=== PATIENT | female | born 1985 | race Caucasian/White ===

== ENCOUNTER 2024-08-22 14:24 | Outpatient (RCR) | payer BC, SELFPAY ==
[2024-08-21 13:38] LABS: Hematocrit 35.1 % (37.0-47.0); Hemoglobin 11.4 g/dL (12.0-15.0)
[2024-08-21 13:59] LABS: Glucose 1 Hour PP 50gm Dose 123 mg/dL
[2024-08-21 14:16] LABS: Rapid Plasma Reagin Non-Reactive (NonReactive)
[2024-08-21 14:33] LABS: HIV 1/2 Ab P24 Ag Result Negative (Negative)
[2024-08-22] MEDS: RHO(D) IMMUNE GLOBULIN 300 MCG/2 ML SYRINGE IM (10:35)
== END 2024-08-22 14:30 | disposition home or self-care (01) ==
LOC: ANHLAB 14:24
PROVIDERS: Visit Provider Obstetrics & Gynecology
DX: Z11.4 Encounter for screening for human immunodeficiency virus [HIV] (principal); Z11.3 Encounter for screening for infections with a predominantly sexual mode of transmission; Z29.13 Encounter for prophylactic Rho(D) immune globulin; O36.0130 Maternal care for anti-D [Rh] antibodies, third trimester, not applicable or unspecified; Z3A.00 Weeks of gestation of pregnancy not specified
CPT/HCPCS: 36415; 82947; 85014; 85018; 85461; 86592; 86703; 86850; 86900; 86901; 90384; 96372; G0432; J2790

== ENCOUNTER 2024-11-16 06:00 | Inpatient (IN) | payer BC, SELFPAY ==
[2024-11-16] VITALS (18 sets, daily range): BP systolic 96–127; BP diastolic 56–101; PULSE 66–82; RESP 16; TEMP 36.5–36.9; O2SAT 97; BMI 30.7
--- OUTSIDE RECORDS SUMMARY | 2024-11-16 06:02 | XMS_ITS | Data Portability ---
Author Organization [facility] Address [address] [place] [address] Care Team Providers Care Electric Drill Operator Name Role Phone [facility] Primary Care Provider Assessment Encounter Date Assessment Date Assessment LastModified by Organization Details LastModified Time 10/23/2024 10/23/2024 Patient is ___weeks . Discussed plan. Not available 10/23/2024 10:44:36 10/29/2024 10/29/2024 Patient is ___weeks . Discussed plan. Not available 10/29/2024 11:13:36 11/09/2024 11/09/2024 Patient is ___weeks . Discussed plan. Not available 11/09/2024 11:36:08 Plan of Treatment Reminders Order Date Submit Date Provider Last Modified By Organization Details Last Modified Time Details Appointments INDUCTION 2024 06:00A Gaby SUE MD Not available Not available Not available Lab None recorded. Referral None recorded. Procedures None recorded. Surgeries None recorded. Imaging non-stres s test 2024 025 [facility], [address], [address], [place], [address], 11/13/2024 14:47:36 Medication Orders None recorded. Patient TargetsNo targets recorded. Patient InstructionsNo instructions recorded. Reason for Referral None Reported. Results Created Date Observation Date Name Description Value Unit Range Abnormal Flag Note LastModifiedBy Organization Detail LastModifiedTime 10/04/19 25 10/04/2024 US, obste tric, follo w-up No observ ation record ed. [email or web address] [facility] [address], [place], [address], 10/04/2024 12:37:02 10/04/19 25 10/04/2024 US, obste tric, follo w-up No observ ation record ed. [email or web address] [address], [place], [address], 10/04/2024 21:45:44 11/14/19 25 11/13/2024 non-s tress test No observ ation record ed. [email or web address] [facility] [address], [place], [address], 11/13/2024 14:39:48 11/14/19 25 non-s tress test No observ ation record ed. [email or web address] [facility] [address], [place], [address], 11/13/2024 14:49:13 Result Notes None recorded. Problems Name Problem SNOMED Code Status Onset Date Resolution Date Notes Provider Name and Address Organization Details Recorded Time [id number] Active 024 Arina Peraza [facility] 4 15:49:10 Advanced maternal age 867531087 Active Edilia Valerio [facility] 4 15:28:14 Problem Notes None recorded. Procedures Surgical History Date Name Laterality Status Provider Name and Address Organization Details Recorded Time 3 Date of Last Pap Smear completed Arina Peraza [facility] 04/13/2024 15:19:59 1 discectomy of spine completed Arina Peraza [facility] 04/13/2024 15:25:20 Imaging Results Imaging Date Name Status LastModified by Organiz ation Details LastModified Time 10/04/2024 US, obstetric, follow-up completed [email or web address] [facility] [address], [place], [address], 10/04/2024 12:37:02 10/04/2024 US, obstetric, follow-up completed [email or web address] [address], [place], [address], 10/04/2024 21:45:44 11/13/2024 non-stress test active [facility] [address], [place], [address], 11/13/2024 14:39:48 11/13/2024 non-stress test completed [facility] [address], [place], [address], 11/13/2024 14:49:13 Procedure Notes None recorded. Medical Equipment None Reported. Allergies No known drug allergies Medications Name Sig Start Date Stop Date Status Note LastModified by Organization Details LastModified Time ondansetron 8 mg disintegrat ing tablet Place 1 tablet twice a day by transling ual route. 07/27 completed Not Available Not Available Not Available active Not Available Not Avai lable Not Available Vitals Date Recorded Body height Body mass index (BMI) Body weight Systolic blood pressure Diastolic blood pressure Provider Name and Address Organization Details Last Updated DateTime 10/23/2024 167.64 cm 30.2 kg/m2 17833.77 g 112 mm[Hg] 62 mm[Hg] Arina Peraza [facility] 10:45:19 Date Recorded Body weight Systolic blood pressure Diastolic blood pressure Provider Name and Address Organization Details Last Updated DateTime 10/29/2024 94168.9579 3 g 117 mm[Hg] 75 mm[Hg] Arina Peraza [facility] 10/29/2024 11:14:16 Date Recorded Body height Body mass index (BMI) Body weight Systolic blood pressure Diastolic blood pressure Provider Name and Address Organization Details Last Updated DateTime 11/09/2024 167.64 cm 31.2 kg/m2 16116.33 g 129 mm[Hg] 76 mm[Hg] Arina Peraza [facility] 11:37:15 Date Recorded Body height Body mass index (BMI) Body weight Systolic blood pressure Diastolic blood pressure Provider Name and Address Organization Details Last Updated DateTime 11/13/2024 167.64 cm 30.7 kg/m2 03101.55 g 108 mm[Hg] 70 mm[Hg] EDITH Hinds [facility] 12:58:32 Date Recorded Body height Body mass index (BMI) Body weight Systolic blood pressure Diastolic blood pressure Provider Name and Address Organization Details Last Updated DateTime 11/13/2024 167.64 cm 30.7 kg/m2 66626.55 g 108 mm[Hg] 70 mm[Hg] Arina Peraza [facility] 14:35:47 Social History Question Answer Notes LastModified by Organizat ion Details LastModified Time Tobacco Smoking Status Never Smoker Arina Peraza nohelia, [facility] 04/13/2024 15:23:16 What Is Your Level Of Alcohol Consumption? None Information not available 04/13/2024 Are You Blind Or Do You Have Difficulty Seeing? No Information n ot available 04/13/2024 What Is Your Level Of Caffeine Consumption? None Information not available 04/13/2024 In The 14 Days Before Symptom Onset, Have You Had Close Contact With A Laboratory-confirm ed COVID-19 While That Case Was Ill? No Information n ot available 04/13/2024 In The 14 Days Before Symptom Onset, Have You Had Close Contact With A Person Who Is Under Investigation For COVID-19 While That Person Was Ill? No Information not available 04/13/2024 Have You Been To An Area Known To Be High Risk For COVID-19? No Information not available 04/13/2024 Are You Currently Employed? No Information not available 04/13/2024 Are You Deaf Or Do You Have Serious Difficulty Hearing? No Information not available 04/13/2024 What Type Of Diet Are You Following? VEGAN Information n ot available 04/13/2024 What Is The Highest Grade Or Level Of School You Have Completed Or The Highest Degree You Have Received? [id number] Information not available 04/13/2024 Are There Any Guns Present In Your Home? Yes Information not available 04/13/2024 Do You Use Protection During Sex? No Information not available 04/13/2024 Do You Use Your Seat Belt Or Car Seat Routinely? Yes Information not available 04/13/2024 Are You Sexually Active? Yes Information not available 04/13/2024 Do You Have Smoke And Carbon Monoxide Detectors In Your Home? Yes Information not available 04/13/2024 Do You Feel Stressed (tense, Restless, Nervous, Or Anxious, Or Unable To Sleep At Night)? [id number] Information not available 04/13/2024 Do You Use Any Illicit Or Recreational Drugs? No Information not available 04/13/2024 Do You Use Sunscreen Routinely? No Information not available 04/13/2024 Sex: Female Functional Status Question Answer Note LastModified by Organizat ion Details LastModified Time Do you have difficulty walking or climbing stairs? No Information not available 04/13/2024 Are you able to walk? YESWOREST Information not available 04/13/2024 Are you able to care for yourself? Yes Information not available 04/13/2024 Do you have difficulty dressing or bathing? No Information not available 04/13/2024 What is your exercise level? Heavy Information not available 04/13/2024 Mental Status None recorded. Family History Relationship Description Onset Age of this Age Resolved Age Notes LastModified by Organization Details LastModified Time Father Diabetes mellitus Not available 2023 15:22:52 Mother Malignant tumor of breast Not available 2023 15:23:00 Medical History Condition Response Allergies (Food, seasonal, environmental ) N Other N Drug/Latex Allergies/Reactions N Blood Transfusion N Breast Cancer N Dermatologic Disorders N Lung Disease N Defects or Inherited Disease N Breast Problem N Gestational Diabetes N Hematologic disorders N Anesthesia Complications N History of STI N Deep Vein Thrombosis N Polycystic ovary syndrome N Anxiety Disorder N Autoimmune disease N Arthritis N Polyps N Infertility N Acid Reflux (GERD) N History of abnormal pap N Cancer N Varicosities N Stroke N Neurologic/Epilepsy N Endometriosis N High Cholesterol N Fibromyalgia N Headaches N Kidney Disease N Heart Problems N Thyroid Problems N Kidney or Bladder Problems N GI Problems N Eating Disorder N Anemia N Art (IVF or FET) N Psychiatric Illness N Ovarian Cancer N Diabetes N Pulmonary (TB, Asthma) N Hepatitis/Liver Disease N No Past Medical History Y Eczema N Urinary Tract Infection N Abuse/Domestic Violence N Asthma N Trauma/Violence N Depression/ depression N Heart Disease N Pre-Eclampsia N Hypertension N Osteoporosis N Thrombophilias N Gynecological History Statement/Question Response Abnormal Pap N Flow Moderate Date of LMP 02/04/2024 On BCP's at Conception? N Was last menstrual period normal Y STIs/STDs N HPV Vaccine N Duration of Flow (days) 6 Current Control Method Are cycles usually normal Y Frequency of Cycle (Q days) 28 Sexually Active? Y Menses Monthly Y Age of first menstrual cycle 15 Date of Last Pap Smear 09/05/2022 Sexual Problems? N LMP Definite Obstetrics History GPAL:G 2 P 1 0 0 1 Type Value Full Term 1 Living 1 Total 2 Past Encounters Encounter ID Performer Location Encounter Start Date Encounter Closed Date Diagnosis/Indication Diagnosis SNOMED-CT Code Diagnosis ICD10 Code Diagnosis Note [id number] Fatmata Fleming [facility] [address] [address] 04/13/2024 14:21:28 04/13/2024 15:11:25 [id number] Valdo Sue MD [facility] [address] [address] 04/13/2024 14:31:30 04/13/2024 15:53:10 Amenorrhea 96741162 N91.2 this patient is a 38 year-old female who presents for amenorrhea . She is a positive test. Ultrasound revealed a 1st trimester gestation. Patient has no complaints . We talked about early care. Talked about genetic screening. We talked about her ultrasound results. We talked about the 12 week ultrasound that has genetic screening components . She was given recommenda tions on exercise, diet, over-the-c ounter medication s. We reviewed her obstetric history. We reviewed her medical history. We reviewed her social history. She will begin routine care at her next visit. [id number] Odalis Silva [facility] [address],[place] [address] 04/30/2024 14:45:36 04/30/2024 15:47:56 screening 181179337 Z36.82 Z3A.12 [id number] Valdo Sue MD [facility] [address],[place] [address] 04/30/2024 14:47:35 04/30/2024 16:36:05 Routine care 127680735 Z34.91 Nausea and vomiting 1693 1999 R11.2 [id number] Valdo Sue MD [facility] [address],[place] [address] 05/28/2024 09:23:31 05/28/2024 10:08:33 Routine care 634997040 Z34.91 [id number] SYMONE GOODEN MD [facility] [address] [address] 06/29/2024 11:24:59 06/29/2024 14:10:45 Advanced maternal age 387813493 O09.522 Gestation period, 20 weeks 49850788 Z3A.20 - continue PNV [id number] [facility] [address],[place] [address] 06/29/2024 11:27:19 07/02/2024 10:13:58 screening for malformation 343848441 Z36.3 Z3A.20 [id number] SYMONE GOODEN MD [facility] [address],[place] [address] 07/27/2024 09:18:03 07/27/2024 10:01:48 Routine care 894392643 Z34.82 [id number] [facility] [address] [address] 08/22/2024 09:27:42 08/22/2024 10:12:48 Advanced maternal age 832113083 O09.513 Z36.2 Z3A.28 [id number] SYMONE GOODEN MD [facility] [address],[place] [address] 08/22/2024 09:28:00 08/22/2024 10:54:39 Breech presentation 6271483 O32.1XX9 Advanced m aternal age 956062953 O09.522 RhD negative 363722101 Z 01.83 Gestation period, 28 weeks 93846650 Z3A.28 [id number] [facility] [address],[place] [address] 09/04/2024 11:52:25 09/04/2024 12:34:10 screening 179357606 Z36.2 Z3A.30 [id number] Valdo Sue MD [facility] [address],[place] [address] 09/04/2024 11:52:43 09/05/2024 02:47:37 Routine care 847963121 Z34.91 [id number] Valdo Sue MD [facility] [address],[place] [address] 09/17/2024 10:27:40 09/17/2024 10:53:21 Routine care 352567144 Z34.91 [id number] [facility] [address],[place] [address] 10/04/2024 10:18:46 10/04/2024 11:14:09 Uterine size for dates discrepancy 827215134 O26.843 Z3A.34 [id number] MD Indy Romano [address],[place] [address] 10/04/2024 10:19:05 10/04/2024 12:11:51 Routine care 779884865 Z34.91 [id number] MD Indy Romano [address],[place] [address] 10/16/2024 10:35:05 10/16/2024 12:18:54 Routine care 910464381 Z34.91 [id number] Valdo Sue MD [facility] [address],[place] [address] 10/23/2024 10:28:16 10/23/2024 11:15:59 Routine care 835799862 Z34.91 [id number] Valdo Sue MD [facility] [address],[place] [address] 10/29/2024 10:37:43 10/29/2024 12:05:26 Routine care 315279167 Z34.91 [id number] Valdo Sue MD [facility] [address],[place] [address] 11/09/2024 11:17:44 11/09/2024 12:30:22 Routine care 054292865 Z34.91 [id number] Arina Peraza [facility] [address],[place] [address] 11/13/2024 11:52:46 11/13/2024 14:47:36 Post-term 01231240 O48.0 [id number] Valdo Sue MD [facility] [address],[place] [address] 11/13/2024 11:53:47 11/13/2024 13:16:20 Health Concerns Section Related Observation LastModified by Organization Detai ls LastModified Time None Recorded Concern Status LastModified by Organization Details LastModified Time None Recorded Advance Directives Directive None Recorded Payers Encounter Date Sequence Insurance Name Policy Number Policy Bee Covered Member ID Bee Member ID Guarantor Name 10/23/2024 1 [place] [id number] Ruben Hartman [id number] 10/23/2024 2 [place] [facility] [id number] [facility] 10/29/2024 1 [id number] Ruben Hartman [id number] [facility] 10/29/2024 2 [place] [facility] [id number] [facility] 11/09/2024 1 [place] [id number] Ruben López [place] [id number] [facility] 11/09/2024 2 [place] [facility] [id number] [facility] 11/13/2024 1 [id number] Ruben López [place] [id number] [facility] 11/13/2024 2 [place] [facility] [id number] [facility] 11/13/2024 1 [place] [id number] Ruben López [place] [id number] [facility] 11/13/2024 2 [place] [facility] [id number] [facility] OBGyn Episode Ob Episode Information Episode Created Date Number of Fetuses Patient Bloodtype Patient rh Status Prepregnancy Weight lbs Domestic Partner Domestic Partner Phone Father Name Medical Art Therapist Status 04/13/20 24 1 CLOSED Fetus Data First Name Last Name Admitted to NICU Weight (g) Sex Living Outcome Pediatric Complications Fetus ID Race Codes Race Delivery Type 2749.67 [id number] F Full Term [id number] Vaginal Delivery Julito Calculation Initial Julito Date Initial Exam Date Initial Exam Provider Initial Ultrasound Date Last Menstrual Period Date Ultra Sound Weeks Gestation 0 Eighteen To Twenty Week Julito Update Ultra Sound Date Fundal Height At Umbil Quickening Date Ultra Sound Latest Weeks Gestation Final Julito Confirmed By Final Julito Confirmed Date Final Julito Date Ultra Sound Latest Days Gestation 0 0 Menstrual History Last Menstrual Date Menses Monthly On Bcp Conception Prior Menses Frequency Hcg Plus Date Menarche Onset Age Delivery Information Delivery Date Delivery Type Labor Anesthesia Weeks Gestation Incision Type Labor Labor Length Hrs Delivered By Post Complications Tubal Sterilization Discharge Date Comments 2 41 Discharge Information Feeding Method Contraceptive Method Maternal HG B and HCT Levels Ob Episode Information Episode Created Date Number of Fetuses Patient Bloodtype Patient rh Status Prepregnancy Weight lbs Domestic Partner Domestic Partner Phone Father Name Medical Art Therapist Status 04/30/20 24 1 A Negative 135 Abner OPEN Fetus Data First Name Last Name Admitted to NICU Weight (g) Sex Living Outcome Pediatric Complications Fetus ID Race Codes Race Delivery Type [id number] Problems Problem Notes + GBS Problem Name Start Date End Date Resolution Snomed Code Not e Advanced maternal age [id number] Julito Calculation Initial Julito Date Initial Exam Date Initial Exam Provider Initial Ultrasound Date Last Menstrual Period Date Ultra Sound Weeks Gestation 04/30/2024 04/30/2024 02/04/2024 12 Eighteen To Twenty Week Julito Update Ultra Sound Date Fundal Height At Umbil Quickening Date Ultra Sound Latest Weeks Gestation Final Julito Confirmed By Final Julito Confirmed Date Final Julito Date Ultra Sound Latest Days Gestation 0 [email or web address] 04/30/2024 11/11/19 25 0 Pre- Flowsheet Flowsheet Date 04/30/2024 Tavares Score Blood Edema Fundus Height Fundus Units Glucose Ketones Leukocytes Nitrite Labor Signs Protein Cervic Dilation Cervic Effacement Cervic Station 12 cm Type Weight in lbs Pre/Post Dialysis Refused Weight 137.398091390459 BP Diastolic BP Location Tested BP Systolic BP Type 73 L arm 113 sitting Fetus Heart Rate Present A 145 Fetus Movement A No Comments this patient is a 39-year-ol d nultiparous female at 12 weeks' gestation who presents for initial care. She has a history of term vaginal births. Her medical, surgical, obstetric history is unremarkable. She is vaccinated. She was given precautions recommendations for . We talked about vaccines in . Talked about care in detail. She is having genetic testing. She had a normal 12 week ultrasound. To begin routine care. Flowsheet Date 05/28/2024 Tavares Score Blood Edema Fundus Height Fundus Units Glucose Ketones Leukocytes Nitrite Labor Signs Protein Cervic Dilation Cervic Effacement Cervic Station Type Weight in lbs Pre/Post Dialysis Refused 144.522305232254 BP Diastolic BP Location Tested BP Systolic BP Type 71 L arm 121 sitting Fetus Heart Rate Present A 155 Fetus Movement A No Comments no complaints, no problems, routine care, no contractions, no vaginal bleeding, no loss of fluid, no cramping Flowsheet Date 06/29/2024 Tavares Score Blood Edema Fundus Height Fundus Units Glucose Ketones Leukocytes Nitrite Labor Signs Protein Cervic Dilation Cervic Effacement Cervic Station Type Weight in lbs Pre/Post Dialysis Refused BP Diastolic BP Location Tested BP Systolic BP Type Fetus Heart Rate Present Fetus Movement Comments Flowsheet Date 06/29/2024 Tavares Score Blood Edema Fundus Height Fundus Units Glucose Ketones Leukocytes Nitrite Labor Signs Protein Cervic Dilation Cervic Effacement Cervic Station neg none none trace Type Weight in lbs Pre/Post Dialysis Refused 148.418891192782 BP Diastolic BP Location Tested BP Systolic BP Type 70 L arm 110 sitting Fetus Heart Rate Present A Present Fetus Movement A Yes Comments Good movement. No cram ping or bleeding. Anatomy incomplete today, needs ductal arch and plantar right foot. EFW 12%, will monitor in 4 weeks at repeat anatomy US. Discussed parameters for normal EFW. Overall doing well, RTC 4 weeks. Flowsheet Date 07/27/2024 Tavares Score Blood Edema Fundus Height Fundus Units Glucose Ketones Leukocytes Nitrite Labor Signs Protein Cervic Dilation Cervic Effacement Cervic Station neg none none trace Type Weight in lbs Pre/Post Dialysis Refused Weight 159.576428940297 BP Diastolic BP Location Tested BP Systolic BP Type 77 L arm 136 sitting Fetus Heart Rate Present A 150 Fetus Movement A Yes Comments Doing well, no issues. Good movement. No cramping or bleeding. Son had pinworms, patient does not have symptoms. Discussed meds should be safe if needed in . Discussed repeat anatomy US and GCT/labs at [facility] for next visit. RTC 4 weeks. Flowsheet Date 08/22/2024 Tavares Score Blood Edema Fundus Height Fundus Units Glucose Ketones Leukocytes Nitrite Labor Signs Protein Cervic Dilation Cervic Effacement Cervic Station Type Weight in lbs Pre/Post Dialysis Refused BP Diastolic BP Location Tested BP Systolic BP Type Fetus Heart Rate Present Fetus Movement Comments Flowsheet Date 08/22/2024 Tavares Score Blood Edema Fundus Height Fundus Units Glucose Ketones Leukocytes Nitrite Labor Signs Protein Cervic Dilation Cervic Effacement Cervic Station neg none Type Weight in lbs Pre/Post Dialysis Refused 166.633511459120 BP Diastolic BP Location Tested BP Systolic BP Type 66 L arm 114 sitting Fetus Heart Rate Present A 134 Fetus Movement A Yes Comments Doing well, good movem ent. No cramping or bleeding. Completed GCT and labs at [facility] yesterday, all within normal limits. Will call to schedule Rhogam injection. EFW 21%, nany breech. plantar feet view normal, DA not visualized due to position. Will repeat in 4 weeks. Discussed tdap vaccine. RTC 2 weeks. Flowsheet Date 09/04/2024 Tavares Score Blood Edema Fundus Height Fundus Units Glucose Ketones Leukocytes Nitrite Labor Signs Protein Cervic Dilation Cervic Effacement Cervic Station Type Weight in lbs Pre/Post Dialysis Refused BP Diastolic BP Location Tested BP Systolic BP Type Fetus Heart Rate Present Fetus Movement Comments Flowsheet Date 09/04/2024 Tavares Score Blood Edema Fundus Height Fundus Units Glucose Ketones Leukocytes Nitrite Labor Signs Protein Cervic Dilation Cervic Effacement Cervic Station Type Weight in lbs Pre/Post Dialysis Refused 172.382581033278 BP Diastolic BP Location Tested BP Systolic BP Type 69 L arm 109 sitting Fetus Heart Rate Present A 136 Fetus Movement A Yes Comments no complaints, no problems, routine care, no contractions, no vaginal bleeding, no loss of fluid, no cramping Flowsheet Date 09/17/2024 Taavres Score Blood Edema Fundus Height Fundus Units Glucose Ketones Leukocytes Nitrite Labor Signs Protein Cervic Dilation Cervic Effacement Cervic Station 29 cm Type Weight in lbs Pre/Post Dialysis Refused Weight 176.382313802985 BP Diastolic BP Location Tested BP Systolic BP Type 72 L arm 122 sitting Fetus Heart Rate Present Fetus Movement A Yes Comments no complaints, no problems, routine care, no contractions, no vaginal bleeding, no loss of fluid, no crampingsize < dates - Ultrasound Flowsheet Date 10/04/2024 Tavares Score Blood Edema Fundus Height Fundus Units Glucose Ketones Leukocytes Nitrite Labor Signs Protein Cervic Dilation Cervic Effacement Cervic Station Type Weight in lbs Pre/Post Dialysis Refused BP Diastolic BP Location Tested BP Systolic BP Type Fetus Heart Rate Present Fetus Movement Comments Flowsheet Date 10/04/2024 Tavares Score Blood Edema Fundus Height Fundus Units Glucose Ketones Leukocytes Nitrite Labor Signs Protein Cervic Dilation Cervic Effacement Cervic Station Type Weight in lbs Pre/Post Dialysis Refused 183.298858501708 BP Diastolic BP Location Tested BP Systolic BP Type 70 L arm 111 sitting Fetus Heart Rate Present A 144 Fetus Movement A Yes Comments no complaints, no problems, routine care, no contractions, no vaginal bleeding, no loss of fluid, no cramping Flowsheet Date 10/16/2024 Tavares Score Blood Edema Fundus Height Fundus Units Glucose Ketones Leukocytes Nitrite Labor Signs Protein Cervic Dilation Cervic Effacement Cervic Station 1cm 20% -3 Type Weight in lbs Pre/Post Dialysis Refused Weight 184.954842733148 BP Diastolic BP Location Tested BP Systolic BP Type 65 L arm 117 sitting Fetus Heart Rate Present A 145 Present Fetus Movement A Yes Comments no complaints, no problems, routine care, no contractions, no vaginal bleeding, no loss of fluid, no cramping Flowsheet Date 10/23/2024 Tavares Score Blood Edema Fundus Height Fundus Units Glucose Ketones Leukocytes Nitrite Labor Signs Protein Cervic Dilation Cervic Effacement Cervic Station 37 cm Type Weight in lbs Pre/Post Dialysis Refused Weight 187.152067329374 BP Diastolic BP Location Tested BP Systolic BP Type 62 L arm 112 sitting Fetus Heart Rate Present A 146 Present Fetus Movement A Yes Comments no complaints, no problems, routine care, no contractions, no vaginal bleeding, no loss of fluid, no cramping Flowsheet Date 10/29/2024 Tavares Score Blood Edema Fundus Height Fundus Units Glucose Ketones Leukocytes Nitrite Labor Signs Protein Cervic Dilation Cervic Effacement Cervic Station Type Weight in lbs Pre/Post Dialysis Refused 189.687178841569 BP Diastolic BP Location Tested BP Systolic BP Type 75 L arm 117 sitting Fetus Heart Rate Present A 145 Fetus Movement A Yes Comments no complaints, no problems, routine care, no contractions, no vaginal bleeding, no loss of fluid, no cramping Flowsheet Date 11/09/2024 Tavares Score Blood Edema Fundus Height Fundus Units Glucose Ketones Leukocytes Nitrite Labor Signs Protein Cervic Dilation Cervic Effacement Cervic Station Type Weight in lbs Pre/Post Dialysis Refused Weight 193.468862593707 BP Diastolic BP Location Tested BP Systolic BP Type 76 L arm 129 sitting Fetus Heart Rate Present A 166 Present Fetus Movement A Yes Comments no complaints, no problems, routine care, no contractions, no vaginal bleeding, no loss of fluid, no cramping, to induce at 40 and 5 Flowsheet Date 11/13/2024 Tavares Score Blood Edema Fundus Height Fundus Units Glucose Ketones Leukocytes Nitrite Labor Signs Protein Cervic Dilation Cervic Effacement Cervic Station Type Weight in lbs Pre/Post Dialysis Refused Weight 190.559794347535 BP Diastolic BP Location Tested BP Systolic BP Type 70 L arm 108 sitting Fetus Heart Rate Present Fetus Movement Comments Flowsheet Date 11/13/2024 Tavares Score Blood Edema Fundus Height Fundus Units Glucose Ketones Leukocytes Nitrite Labor Signs Protein Cervic Dilation Cervic Effacement Cervic Station none Type Weight in lbs Pre/Post Dialysis Refused Weight 190.630800719407 BP Diastolic BP Location Tested BP Systolic BP Type 70 L arm 108 sitting Fetus Heart Rate Present Fetus Movement A Yes Comments no complaints, no problems, routine care, no contractions, no vaginal bleeding, no loss of fluid, no cramping Menstrual History Last Menstrual Date Menses Monthly On Bcp Conception Prior Menses Frequency Hcg Plus Date Menarche Onset Age 0602/04/2024 true Delivery Information Delivery Date Delivery Type Labor Anesthesia Weeks Gestation Incision Type Labor Labor Length Hrs Delivered By Post Complications Tubal Sterilization Discharge Date Comments Discharge Information Feeding Method Contraceptive Method Maternal HG B and HCT Levels
--- NOTE | 2024-11-16 06:24 | WPDANESEPP ---
Anes - Eval Pre Procedure Procedure: Labor epidural Date/Time: 11/16/24 06:24 Surgeon: Burke Preop Diagnosis: Abdominal pain with contractions Pre Op Diagnosis: IOL Patient Data Age: 39 Gender: F Height: Weight: Allergies Allergy/AdvReac Type Severity Reaction Status Date / Time nickel Allergy Rash Verified 10/13/24 12:34 Home Medications ?Medication ?Instructions ?Recorded ?Confirmed ?Type vits no.130-ferrous fum 1 tablet PO DAILY 10/13/24 11/16/24 History 27 mg iron-folic acid 800 mcg tablet ( Vitamin) : gestational age HCG: positive Patient hx anesthesia problems: none Family hx anesthesia problems: none Results Review: All pre-operative results and documents have been reviewed as part of the pre-operative evaluation. [facility] Past Medical History Medical History Overweight (BMI 25.0-29.9) and not yet delivered Seasonal allergies History of herniated intervertebral disc History of vaginal delivery Surgical History Surgical History History of lumbar discectomy Family History Family History Father Diabetes mellitus Mother Breast cancer Social History Social History Smoking status: Never smoker Alcohol intake: never Substance use: never Lack of Transportation: No Lack of Food: Never True Current Housing: I Have Housing Concerned About Future Housing: No Difficulty Paying Gas/Electric Bills: No Difficulty Paying for Meds: No Currently Unemployed: YES Education: Master's Degree or Higher Difficulty w/ Childcare or Family Care: No Living arrangements: with family Additional occupation/education comments: Stay at home mom Gender identity (if verbalized by the patient): Female Sexual Orientation (if Verbalized by the Patient): Straight or Heterosexual Spiritual care concerns: No Exam Day of Procedure 11/16/24 06:24 Patient weight: overweight
[2024-11-16 06:30] LABS: Basophils Percent Auto 0.4 % (0.2-1.2); Eosinophils Percent Auto 0.4 % (0-4.4); Hematocrit 37.1 % (37.0-47.0); Hemoglobin 12.1 g/dL (12.0-15.0); Immature Granulocyte Absolute 0.09 K/mm3 (0.00-0.031); Immature Granulocyte Percent A 0.9 % (0-0.5); Lymphocytes Absolute Auto 1.79 K/mm3 (0.9-3.2); Lymphocytes Percent Auto 17.4 % (18.3-44.2); Mean Corpuscular HGB Conc 32.6 g/dl (32-36); Mean Corpuscular Hemoglobin 29.2 pg (26-34); Mean Corpuscular Volume 89.4 fl (80-100); Mean Platelet Volume 10.1 fl (7.4-10.4); Monocytes Absolute Auto 0.8 K/mm3 (0.1-0.6); Monocytes Percent Auto 7.7 % (2.6-8.5); Neutrophils Absolute Auto 7.5 K/mm3 (1.3-6.7); Neutrophils Percent Auto 73.2 % (45.5-73.1); Platelet Count Result 217 k/mm3 (150-375); Red Blood Count 4.15 M/mm3 (4.2-5.4); Red Cell Distribution Width 13.5 % (11.5-14.5); White Blood Count 10.3 K/mm3 (4.5-10.0)
[2024-11-16] MEDS: LACTATED RINGERS 1,000 ML 125 ML IV CONT (06:39)
[2024-11-16] MEDS: AMPICILLIN 2 GM/NS 100 ML 2 GM/100 ML BAG IVPB (06:41)
--- NOTE | 2024-11-16 06:49 | LDADM ---
This patient, Pamela Hartman, was admitted to Labor/Delivery/Recovery 106 on 11/16/24 at 06:00. Plans for labor, pain management and were discussed with patient. Patient/family oriented to hospital policies and general routines including ID bracelet, bed and alarms, visiting hours, pain management, procedures, bathroom and other care routines, personal items, smoking policy, room service/diet and guest tray routines, infant security routines, and visiting hours. Patient/Family are encouraged to report perceived risks to care and to ask questions if they do not understand what they are told or what they should do. See OBIX for further documentation.
[2024-11-16] MEDS: OXYTOCIN 30 UNITS/NS 500 ML 30 UNITS/500 ML BAG IV CONT (07:05)
[2024-11-16 07:21] LABS: HIV 1/2 Ab P24 Ag Result Negative (Negative)
[2024-11-16 07:22] LABS: Syphilis IgG/IgM Antibody Negative (Negative)
--- NOTE | 2024-11-16 08:39 | WPDHPUPDATE1 ---
History and Physical Update Update Date/Time: 11/16/24 08:39 this patient is a 39 year old multiparous female at 40 weeks and 5 days gestation who presents for induction of labor for postdates. Active management of labor has been initiated with Pitocin. She is GBS positive and receiving antibiotics. Reassuring status. History and Physical has been reviewed, including an updated exam of the patient. There are NO changes in the patient's condition. Risks, benefits, and alternatives have been discussed and questions answered. Patient agrees to proceed with procedure.
[2024-11-16] MEDS: AMPICILLIN 1 GM/NS 50 ML 1 GM/50 ML BAG IVPB (10:49)
--- NOTE | 2024-11-16 12:33 | PM.OBPRVD ---
OB - Vaginal Delivery Note Procedure Delivery date: 11/16/24 Induction method: Per Pitocin Protocol Delivery monitor: External FHT and External Uterine Route of delivery: Episiotomy description: None Laceration Description: Periurethral Delivery repair: vicryl Quantitative Blood Loss (ml): 250 Anesthesia type: None Disposition: Floor Complications: No immediate complications
[2024-11-16] MEDS: OXYTOCIN 30 UNITS/NS 500 ML 30 UNITS/500 ML BAG 125 UNITS IV CONT (12:56)
--- NOTE | 2024-11-16 14:50 | OBPPTRN ---
Patient transferred to post room #285 via ambulation. Support person present. Oriented to unit, room, information board, rooming in, admission packet and security measures. Patient verbalizes understanding.
--- NOTE | 2024-11-16 16:50 | PC.NURSE ---
Met with mother to assess needs. Mom has fed several times independently already and has baby to breast again. Mom states that she knows baby has a shallow latch at this time, so she broke suction and latched again. It took several tries but baby opens very wide and is eager to nurse. Mom isn't having pain, breastfed her other child, and feels comfortable with how things are going so far. Encouraged her to call for assistance as needed. Reported to RN.
[2024-11-17 04:01] VITALS: BP 103/59; PULSE 73; RESP 18; TEMP 36.6; O2SAT 97
[2024-11-17 05:08] LABS: Hematocrit 39.1 % (37.0-47.0); Hemoglobin 12.1 g/dL (12.0-15.0)
[2024-11-17 08:30] VITALS: BP 113/70; PULSE 82; RESP 16; TEMP 36.4; O2SAT 98
[2024-11-17] MEDS: RHO(D) IMMUNE GLOBULIN 300 MCG/2 ML SYRINGE IM (10:35)
--- NOTE | 2024-11-17 14:05 | P.PNOB_ITS ---
OB - PN: Subj Subjective Date/time seen: 11/17/24 14:05 Patient comments: no complaints, pain well controlled, incisional pain, tolerating diet and flatus present OB - PN: Obj Data Labs 11/17/24 04:13 Labs: Laboratory Results - last 24 hr 11/17/24 04:13 Hgb 12.1 Hct 39.1 Blood Type A Negative Antibody Screen Negative Screen Negative Baby's Blood Type A pos Baby's ANJELICA Negative Doses of RhIg Required 1 OB - PN A/P Plan day: 1 Plan: routine care Comments: No problems, routine care Time Spent With Patient Time: Total time spent is greater than 50% in coordination of care (as documented) at patient's floor/unit and/or counseling patient: Exam 2 Const: General: comfortable, no acute distress and alert Resp: Effort & Inspection: normal respiratory effort Auscultation: no crackles, no rales and no rhonchi Cardio: Rate: regular rate Heart sounds: no click, no murmurs and no rubs GI: Inspection: non-distended GI Palp: No Tenderness to palpation present (GI) Auscultation: normal bowel sounds Other: Incision - CDI Extrem: General: normal to inspection, no pedal edema and no calf tenderness
--- NOTE | 2024-11-17 14:05 | PM.OBDSVD ---
DS: Admitting Diagnosis Discharge Date 11/17/2024 Admitting Diagnosis Term DS: Discharge Diagnosis Discharge Diagnosis (1) Term delivered: Code(s): O80 - Encounter for full-term uncomplicated delivery Status: Acute OB - DS: Summary OB Procedures : None OB Procedures Intrapartum: Spontaneous Vag Delivery OB Procedures: : None Peripartum Data Laceration Description: Periurethral Episiotomy description: None Time Spent with Patient Time attestation: Total time spent providing and/or coordinating discharge services: DS: Data Data Completed and Pending Labs on day of discharge: Labs from last 24 hours 11/17/24 04:13 Hgb 12.1 Hct 39.1 Blood Type A Negative Antibody Screen Negative Screen Negative Baby's Blood Type A pos Baby's ANJELICA Negative Doses of RhIg Required 1 Discharge Plan Discharge Discharging Clinician: Valdo Turk Patient Disposition: Home, Self-Care Activity: pelvic rest Diet: regular Patient Instructions: Antibiotic Form Patient Language: [place] Zealander Stand Alone Forms: General Discharge Information Follow-up/Referrals: Valdo Turk MD [Physician] - Discharge Medications: Continued Vitamin 27 mg iron- 800 mcg tablet 1 tablet PO DAILY Date of admission: 11/16/24 06:00 Primary Care Provider: UNKNOWN,DOCTOR Admitting Provider: Valdo Turk Attending physician on admission: Valdo Turk Condition: Stable
[2024-11-19 09:37] VITALS: BP 116/66; PULSE 77; RESP 18; TEMP 36.4; O2SAT 99
== END 2024-11-17 14:39 | disposition home or self-care (01) | DRG 807 ==
LOC: ANHLDR 06:01 → ANHOB2 15:19
PROVIDERS: Admitting Provider Obstetrics & Gynecology; Visit Provider Obstetrics & Gynecology
DX: O48.0 Post-term pregnancy (principal); Z37.0 Single live birth; Z3A.40 40 weeks gestation of pregnancy; O71.82 Other specified trauma to perineum and vulva
CPT/HCPCS: 36415; 85014; 85018; 85025; 85461; 86593; 86703; 86850; 86900; 86901; 90384; G0432; J0290; J2590; J2790; J7120

== ENCOUNTER 2025-01-12 07:39 | Emergency (ER) | payer BC, MEDICAID, SELFPAY ==
[2025-01-12 07:40] VITALS: BP 108/75; PULSE 77; RESP 16; TEMP 36.4; O2SAT 98
--- OUTSIDE RECORDS SUMMARY | 2025-01-12 07:41 | XMS_ITS | Data Portability ---
Author Organization [facility] [place] Address [address] [place] [address] [place] [address] Care Team Providers Care Wet Process Miller Head Name Role Phone [facility] Primary Care Provider Assessment No assessment recorded. Plan of Treatment Reminders Order Date Submit Date Provider Last Modified By Organization Details Last Modified Time Details Appointments IUD INSERTION 2024 10:45A M CRISTIANE Estes Not available Not available Not available Lab beta-HCG, quantitat terrence, serum or plasma 2024 025 [facility] ([facility]), [address], [place], [address], 01/07/2025 13:49:30 Referral None recorded. Procedures None recorded. Surgeries None recorded. Imaging non-stres s test 2024 025 [email or web address] [facility], [address], [place], [address], 11/13/2024 14:47:36 Medication Orders None recorded. Patient TargetsNo targets recorded. Patient InstructionsNo instructions recorded. Reason for Referral None Reported. Results Created Date Observation Date Name Description Value Unit Range Abnormal Flag Note LastModifiedBy Organization Detail LastModifiedTime 11/14/19 25 11/13/2024 non-s tress test No observ ation record ed. [facility] [address], [place], [address], 11/13/2024 14:39:48 11/14/19 25 non-s tress test No observ ation record ed. [address], [place], [address], 11/13/2024 14:49:13 Result Notes None recorded. Problems Name Problem SNOMED Code Status Onset Date Resolution Date Notes Provider Name and Address Organization Details Recorded Time 83193974 Completed 202311/27/2024 Lynda Louise null, [facility] 5 19:51:47 Advanced maternal age 966865957 Completed Edilia Valerio [facility], [facility] 4 15:28:14 Problem Notes None recorded. Procedures Surgical History Date Name Laterality Status Provider Name and Address Organization Details Recorded Time 5 IUD Insertion completed Luanne Bales [facility] 01/07/2025 12:30:41 3 Date of Last Pap Smear [facility] 04/13/2024 15:19:59 1 discectomy of spine [facility] 04/13/2024 15:25:20 Imaging Results Imaging Date Name Status LastModified by Organiz ation Details LastModified Time 11/13/2024 non-stress test active [address], [place], [address], 11/13/2024 14:39:48 11/13/2024 [facility] [place] [address] [address], [place], [address], 11/13/2024 14:49:13 Procedure Notes None recorded. Medical [...] Updated DateTime 11/13/2024 167.64 cm 30.7 kg/m2 96997.55 g 108 mm[Hg] 70 mm[Hg] EDITH Hinds [facility] 12:58:32 Date Recorded Body height Body mass index (BMI) Body weight Systolic blood pressure Diastolic blood pressure Provider Name and Address Organization Details Last Updated DateTime 11/13/2024 167.64 cm 30.7 kg/m2 66251.55 g 108 mm[Hg] 70 mm[Hg] Arina Stu [facility] 14:35:47 Date Recorded Body height Body mass index (BMI) Body weight Systolic blood pressure Diastolic blood pressure Provider Name and Address Organization Details Last Updated DateTime 12/28/2024 167.64 cm 22.9 kg/m2 51765.12 g 114 mm[Hg] 77 mm[Hg] Arina Stu [facility] 09:34:37 Date Recorded Body height Body mass index (BMI) Body weight Systolic blood pressure Diastolic blood pressure Provider Name and Address Organization Details Last Updated DateTime 01/07/2025 167.64 cm 24.6 kg/m2 47273.48 g 112 mm[Hg] 70 mm[Hg] Luannemarlena Lynchney [facility] 12:46:33 Social History Question Answer Notes LastModified by Organizat ion Details LastModified Time Tobacco Smoking Status Never Smoker Arina Peraza [facility] 04/13/2024 15:23:16 What Is Your Level [...] Or The Highest Degree You Have Received? [id number] Information not available 04/13/2024 Are There Any [...] Anxious, Or Unable To Sleep At Night)? [id number] Information not available 04/13/2024 Do You Use [...] (Food, seasonal, environmental ) N Other N Breast Cancer N Drug/Latex Allergies/Reactions N Blood Transfusion N Dermatologic Disorders N Lung Disease N Defects or Inherited Disease N Breast Problem N Gestational Diabetes N Hematologic disorders N Anesthesia Complications N History of STI N Deep Vein Thrombosis N Polycystic ovary syndrome N Anxiety Disorder N Autoimmune disease N Arthritis N Infertility N Polyps N Acid Reflux (GERD) N History of abnormal pap N Cancer N Stroke N Varicosities N Neurologic/Epilepsy N Endometriosis N High Cholesterol N Headaches N Fibromyalgia N Kidney Disease N Heart Problems N Kidney or Bladder Problems N Thyroid Problems N GI Problems N Eating Disorder [...] of Flow (days) 6 Current Control Method Breastfeedi ng/STERN Are cycles usually normal Y Frequency of Cycle (Q days) 28 Sexually Active? Y Menses Monthly Y Age of first menstrual cycle 15 Date of Last Pap Smear 09/05/2022 Sexual Problems? N Desired Control Method BCPs LMP Definite Obstetrics History GPAL:G 2 P 2 0 0 2 Type Value Full Term 2 Living 2 Total 2 Past Encounters Encounter ID Performer Location Encounter Start Date Encounter Closed Date Diagnosis/Indication Diagnosis SNOMED-CT Code Diagnosis ICD10 Code Diagnosis Note [id number] Valdo Turk MD [facility] [address] [address] 04/13/2024 14:21:28 04/13/2024 15:11:25 [id number] Valdo Turk MD [place] [address],[place] [address] 04/13/2024 14:31:30 04/13/2024 15:53:10 Amenorrhea 73895619 N91.2 this patient is a 38 year-old [...] begin routine care at her next visit. [id number] Valdo Turk MD [place] [address],[place] [address] 04/30/2024 14:45:36 04/30/2024 15:47:56 screening 456260042 Z36.82 Z3A.12 [id number] Valdo Turk MD [place] [address],[place] [address] 04/30/2024 14:47:35 04/30/2024 16:36:05 Routine care 294157865 Z34.91 Nausea and vomiting 1693 2000 R11.2 [id number] Valdo Turk MD [place] [address],[place] [address] 05/28/2024 09:23:31 05/28/2024 10:08:33 Routine care 078147054 Z34.91 [id number] SYMONE GOODEN MD [place] [address],[place] [address] 06/29/2024 11:24:59 06/29/2024 14:10:45 Advanced maternal age 674028345 O09.522 Gestation period, 20 weeks 84257469 Z3A.20 - continue PNV [id number] Valdo Turk MD [place] [address],[place] [address] 06/29/2024 11:27:19 07/02/2024 10:13:58 screening for malformation 432329079 Z36.3 Z3A.20 [id number] SYMONE GOODEN MD [place] [address],[place] [address] 07/27/2024 09:18:03 07/27/2024 10:01:48 Routine care 850665605 Z34.82 [id number] MD Indy Romano [address],[place] [address] 08/22/2024 09:27:42 08/22/2024 10:12:48 Advanced maternal age 371332521 O09.513 Z36.2 Z3A.28 [id number] SYMONE GOODEN MD [place] [address],[place] [address] 08/22/2024 09:28:00 08/22/2024 10:54:39 Breech presentation 1041142 O32.1XX9 Advanced m aternal age 669087653 O09.522 RhD negative 155695246 Z 01.83 Gestation period, 28 weeks 23092395 Z3A.28 [id number] Valdo Turk MD [place] [address],[place] [address] 09/04/2024 11:52:25 09/04/2024 12:34:10 screening 708004691 Z36.2 Z3A.30 [id number] MD Indy Romano [address],[place] [address] 09/04/2024 11:52:43 09/05/2024 02:47:37 Routine care 930753989 Z34.91 [id number] MD Indy Romano [address],[place] [address] 09/17/2024 10:27:40 09/17/2024 10:53:21 Routine care 927707949 Z34.91 [id number] MD Indy Romano [address],[place] [address] 10/04/2024 10:18:46 10/04/2024 11:14:09 Uterine size for dates discrepancy 822785607 O26.843 Z3A.34 [id number] MD Indy Romano [address],[place] [address] 10/04/2024 10:19:05 10/04/2024 12:11:51 Routine care 876651028 Z34.91 [id number] MD Indy Romano [address],[place] [address] 10/16/2024 10:35:05 10/16/2024 12:18:54 Routine care 414954612 Z34.91 [id number] MD Indy Romano [address],[place] [address] 10/23/2024 10:28:16 10/23/2024 11:15:59 Routine care 793719714 Z34.91 [id number] MD Indy Romano [address],[place] [address] 10/29/2024 10:37:43 10/29/2024 12:05:26 Routine care 406268932 Z34.91 [id number] MD Indy Romano [address],[place] [address] 11/09/2024 11:17:44 11/09/2024 12:30:22 Routine care 462890813 Z34.91 [id number] MD Indy Romano [address],[place] [address] 11/13/2024 11:52:46 11/13/2024 14:47:36 Post-term 21835359 O48.0 [id number] MD Indy Romano [address],[place] [address] 11/13/2024 11:53:47 11/13/2024 13:16:20 [id number] Valdo Turk MD [place] [address] [address] 11/16/2024 08:58:44 11/19/2024 08:41:43 [id number] Valdo Turk MD [place] [address] [address] 12/28/2024 09:23:28 12/28/2024 10:02:48 care status 895325796 Z39.2 39-year-ol d female presents for care. Her baby is doing well. The baby is breastfeed ing. Patient continues to bleed a little bit. She has not had intercours e. We agreed to Mirena IUD after some counseling on contracept ion. Well-woman exam in 3 months. She will return next week for Mirena IUD. [id number] CRISTIANE Estes [facility] [address],[place] [address] 01/07/2025 12:19:34 01/07/2025 13:57:40 Left before being seen 3837794307 105 Z53.21 No charge visit pt here for Mirena IUDhas been having unprotecte d IC (last 3 days ago)will abstain from unprotecte d IC x 2 weeks and RTC for Mirena IUD insertionw ill have bhcg done day prior Contracept ion care management 667271987 Z30.9 Health Concerns Section Related Observation LastModified by Organization Detai ls LastModified Time None Recorded Concern Status LastModified by Organization Details LastModified Time None Recorded Advance Directives Directive None Recorded Payers Encounter Date Sequence Insurance Name Policy Number Policy Bee Covered Member ID Bee Member ID Guarantor Name 11/13/2024 1 [place] [id number] Ruben Hartman [id number] [facility] 11/13/2024 2 [place] [facility] [id number] [facility] 11/13/2024 1 [place] [id number] Ruben Hartman [id number] [facility] 11/13/2024 2 [place] [facility] [id number] [facility] 11/16/2024 1 [place] [id number] Ruben Hamiltonwater [id number] [facility] 11/16/2024 2 [place] [facility] [id number] [facility] 12/28/2024 1 [place] [id number] Ruben López Gurdon [id number] [facility] 12/28/2024 2 [place] [facility] [id number] [facility] 01/07/2025 1 [place] [id number] Ruben López Gurdon [id number] [facility] 01/07/2025 2 [place] [facility] [id number] [facility] Notes Date Note Type Note Provider Name and Address Organization Details Recorded Time 12/28/2024 text/html 39-year-old female presents for care. Her baby is doing well. The baby is . Patient continues to bleed a little bit. She has not had intercourse. We agreed to Mirena IUD after some counseling on contraception. Well-woman exam in 3 months. She will return next week for Mirena IUD. Valdo Turk MD [address], [place], [address], [facility] 12/28/2024 10:00:28 01/07/2025 text/html Patient presents for IUD insertion. CRISTIANE Estes [address], [place], [address], [facility] 01/07/2025 13:49:49 OBGyn Episode Ob Episode Information Episode Created Date Number of Fetuses Patient Bloodtype Patient rh Status Prepregnancy Weight lbs Domestic Partner Domestic Partner Phone Father Name Environmental Projects Advisor Status 04/13/20 24 1 CLOSED Fetus Data First Name Last Name Admitted to NICU Weight (g) Sex Living Outcome Pediatric Complications Fetus ID Race Codes Race Delivery Type 2749.67 4704 F Full Term [id number] Vaginal Delivery Julito Calculation Initial Julito Date [...] Domestic Partner Domestic Partner Phone Father Name Environmental Projects Advisor Status 04/30/20 24 1 A Negative 135 Abner CLOSED Fetus Data First Name Last Name Admitted to NICU Weight (g) Sex Living Outcome Pediatric Complications Fetus ID Race Codes Race Delivery Type 3203.49 37 F true Full Term [id number] Vaginal Delivery Problems Problem Notes + GBS Problem Name Start Date End Date Resolution Snomed Code Not e Advanced maternal age 160943772 Julito Calculation Initial Julito Date Initial Exam [...] Weight in lbs Pre/Post Dialysis Refused Weight 137.710345539214 BP Diastolic BP Location Tested BP Systolic [...] Type Weight in lbs Pre/Post Dialysis Refused 144.218398754700 BP Diastolic BP Location Tested BP Systolic [...] Type Weight in lbs Pre/Post Dialysis Refused 148.333007151468 BP Diastolic BP Location Tested BP Systolic [...] Weight in lbs Pre/Post Dialysis Refused Weight 159.038659592609 BP Diastolic BP Location Tested BP Systolic BP Type 77 L arm 136 sitting Fetus Heart Rate Present A 150 Fetus Movement A Yes Comments Doing well, no issues. Good movement. No cramping or bleeding. Son had pinworms, patient does not have symptoms. Discussed meds should be safe if needed in . Discussed repeat anatomy US and GCT/labs at [place] for next visit. RTC 4 weeks. Flowsheet [...] Type Weight in lbs Pre/Post Dialysis Refused 166.215322371509 BP Diastolic BP Location Tested BP Systolic BP Type 66 L arm 114 sitting Fetus Heart Rate Present A 134 Fetus Movement A Yes Comments Doing well, good movem ent. No cramping or bleeding. Completed GCT and labs at [place] yesterday, all within normal limits. Will call [...] Type Weight in lbs Pre/Post Dialysis Refused 172.831656937040 BP Diastolic BP Location Tested BP Systolic BP Type 69 L arm 109 sitting Fetus Heart Rate Present A 136 Fetus Movement A Yes Comments no complaints, no problems, routine care, no contractions, no vaginal bleeding, no loss of fluid, no cramping Flowsheet Date 09/17/2024 Tavares Score Blood Edema Fundus Height Fundus Units Glucose Ketones Leukocytes Nitrite Labor Signs Protein Cervic Dilation Cervic Effacement Cervic Station 29 cm Type Weight in lbs Pre/Post Dialysis Refused Weight 176.627473761237 BP Diastolic BP Location Tested BP Systolic [...] Type Weight in lbs Pre/Post Dialysis Refused 183.535073491729 BP Diastolic BP Location Tested BP Systolic [...] Weight in lbs Pre/Post Dialysis Refused Weight 184.800281580161 BP Diastolic BP Location Tested BP Systolic [...] Weight in lbs Pre/Post Dialysis Refused Weight 187.563003768073 BP Diastolic BP Location Tested BP Systolic [...] Type Weight in lbs Pre/Post Dialysis Refused 189.099698360986 BP Diastolic BP Location Tested BP Systolic [...] Weight in lbs Pre/Post Dialysis Refused Weight 193.881980418652 BP Diastolic BP Location Tested BP Systolic [...] Weight in lbs Pre/Post Dialysis Refused Weight 190.520715075111 BP Diastolic BP Location Tested BP Systolic BP Type 70 L arm 108 sitting Fetus Heart Rate Present Fetus Movement Comments Flowsheet Date 11/13/2024 Tavares Score Blood Edema Fundus Height Fundus Units Glucose Ketones Leukocytes Nitrite Labor Signs Protein Cervic Dilation Cervic Effacement Cervic Station none Type Weight in lbs Pre/Post Dialysis Refused Weight 190.811301058250 BP Diastolic BP Location Tested BP Systolic BP Type 70 L arm 108 sitting Fetus Heart Rate Present Fetus Movement A Yes Comments no complaints, no problems, routine care, no contractions, no vaginal bleeding, no loss of fluid, no cramping Flowsheet Date 11/16/2024 Tavares Score Blood Edema Fundus Height Fundus Units Glucose Ketones Leukocytes Nitrite Labor Signs Protein Cervic Dilation Cervic Effacement Cervic Station Type Weight in lbs Pre/Post Dialysis Refused BP Diastolic BP Location Tested BP Systolic BP Type Fetus Heart Rate Present Fetus Movement Comments Menstrual History Last Menstrual Date Menses Monthly On Bcp Conception Prior Menses Frequency Hcg Plus Date Menarche Onset Age 0602/04/2024 true Delivery Information Delivery Date Delivery Type Labor Anesthesia Weeks Gestation Incision Type Labor Labor Length Hrs Delivered By Post Complications Tubal Sterilization Discharge Date Comments 5 Induce d 40.6 2.21 Valdo Turk MD Discharge Information Feeding Method Contraceptive Method Maternal HG B and HCT Levels
--- NOTE | 2025-01-12 07:54 | ED_ITS ---
HPI - Back Pain/Injury General Chief Complaint: Back Pain/Injury Stated Complaint: back pain Time Seen by Provider: 01/12/25 07:46 Source: patient Mode of arrival: ambulatory Limitations: no limitations History of Present Illness MD elicited complaint: back pain Pertinent past history: prior back pain Onset (ago): day(s) Timing: constant Severity: moderate Pain scale (0-10): 6 Similar Symptoms Previously: Yes Quality: aching and spasming Related Data Home Medications ?Medication ?Instructions ?Recorded ?Confirmed ?Last Taken ?Type vits no.130-ferrous fum 1 tablet PO DAILY 10/13/24 11/16/24 11/05/24 History 27 mg iron-folic acid 800 mcg tablet ( Vitamin) Allergies Allergy/AdvReac Type Severity Reaction Status Date / Time nickel Allergy Rash Verified 01/12/25 07:41 Review of Systems Review of Systems: All systems reviewed & are unremarkable except as noted in HPI and below PMFSH Past Medical History Medical History Overweight (BMI 25.0-29.9) and not yet delivered Seasonal allergies History of herniated intervertebral disc History of vaginal delivery Surgical History Surgical History History of lumbar discectomy Family History Family History Father Diabetes mellitus Mother Breast cancer Social History Social History Smoking status: Never smoker Second hand tobacco smoke exposure: No Alcohol intake: never Substance use: never Do You Feel Safe in your Home?: Yes Lack of Transportation: No Lack of Food: Never True Current Housing: I Have Housing Concerned About Future Housing: No Difficulty Paying Gas/Electric Bills: No Difficulty Paying for Meds: No Currently Unemployed: No Education: Master's Degree or Higher Difficulty w/ Childcare or Family Care: No Living arrangements: with family Additional occupation/education comments: Stay at home mom Gender identity (if verbalized by the patient): Female Sexual Orientation (if Verbalized by the Patient): Straight or Heterosexual Spiritual care concerns: No Exam Const: General: healthy appearing, no acute distress and alert Nutritional Appearance: well nourished Orientation/consciousness: patient oriented x3 Limitations: no limitations HENMT: Head: normal to inspection Eyes: Conjunctivae: conjunctivae normal Neck: Neck: normal visual inspection Chest: Chest palpation & inspection: normal inspection of the chest Resp: Effort & Inspection: normal respiratory effort Auscultation: clear to auscultation bilaterally Cardio: Rate: regular rate Rhythm: regular rhythm GI: GI Palp: Yes Soft to palpation Auscultation: normal bowel sounds : General: Yes bladder normal to palpation Urinary Catheter: Urinary Catheter: patent and draining Back/Spine/Pelvis: Back: no CVA tenderness Skin: General skin exam: normal color Neuro: General: patient oriented x3, moves all extremities and no meningeal signs Extrem: General: normal to inspection Other: right lower back pain L5 paravertebral tenderness with a positive straight leg raising test. Course Course Emergency Course: Patient currently breast feeding and will administer a dose of 40mg IM Depo- Medrol in eyes patient to withhold from best screening for the next 4hours. Vital Signs Vital signs: Vital Signs Temperature 36.4 C L 01/12/25 07:40 Pulse Rate 77 01/12/25 07:40 Respiratory Rate 16 01/12/25 07:40 Blood Pressure 108/75 01/12/25 07:40 Pulse Oximetry 98 01/12/25 07:40 Oxygen Delivery Room Air 01/12/25 07:40 Temperature 36.4 C L 01/12/25 07:40 Pulse Rate 77 01/12/25 07:40 Respiratory Rate 16 01/12/25 07:40 Blood Pressure 108/75 01/12/25 07:40 Pulse Oximetry 98 01/12/25 07:40 Oxygen Delivery Room Air 01/12/25 07:40 Critical Care Time Critical Care Time Critical Care Time: No Discharge Plan Discharge Clinical Impression: Sciatica Patient Disposition: Home Condition: Stable Instructions: Antibiotic Form, Sciatica (ED) Additional Instructions: advised to take medication as prescribed. Follow with primary care physician within 3 to 4 days for further evaluation and treatment. Avoid breast feeding for the next 4hours. Can use heating pad appear Patient Language: Upper Sorbian Prescriptions: New methylprednisolone [Medrol (Benjamín)] 4 mg tablets,dose pack See Rx Instructions .ROUTE .COMPLEX Qty: 21 0RF Rx Instructions: for 6 days No Action Vitamin 27 mg iron- 800 mcg tablet 1 tablet PO DAILY Follow-up/Referrals: Sotero,Bhavin, M.D. [Primary Care Provider] - Time of Disposition: 07:59
--- NOTE | 2025-01-12 07:59 | PC.NURSE ---
Per ERP patient cannot breastfeed baby 2-4 hours after shot is administered. Patient is made aware of treatment plan and is going to feed baby before shot is administered. will let RN know when patient is done and shot will be administered at that time.
[2025-01-12] MEDS: methylPREDNISolone ACETATE 40 MG/ML VIAL IM (08:12)
[2025-01-12 08:35] VITALS: BP 123/84; PULSE 62; RESP 16; TEMP 36.4; O2SAT 99
== END 2025-01-12 08:35 | disposition home or self-care (01) ==
PROVIDERS: Emergency Provider Emergency Medicine; PCP Family Medicine
DX: M54.30 Sciatica, unspecified side (principal)
CPT/HCPCS: 96372; 99283; J1010

== ENCOUNTER 2025-03-26 12:26 | Outpatient (CLI) | payer BC, MEDICAID, SELFPAY ==
--- NOTE | ~2025-03-26 | XR_ITS ---
EXAM/ PROCEDURE: XR pelvis 1-2V - 03/26/2025 12:45 CDT HISTORY: 39 years old Female with Complication of genitourniary prosthetic device COMPARISON: None available TECHNIQUE: Three view(s) FINDINGS/ IMPRESSION: There are no fractures or dislocations.Joint spaces are within normal limits. IUD seen. Reviewed, dictated and finalized at location A.
--- OUTSIDE RECORDS SUMMARY | 2025-03-26 12:32 | XMS_ITS | Data Portability ---
Author Organization [facility] Address [address] [place] [address] [place] [address] Care Team Providers Care Spinner Hand Name Role Phone [facility] Primary Care Provider Assessment No assessment recorded. Plan of Treatment Reminders Order Date Submit Date Provider Last Modified By Organization Details Last Modified Time Details Appointments None recorded. Lab CT + NG + TV, RNA, unspecified specimen 2024 025 [facility] (Lab), [address], [place], [address], 13:29:19 test, urine 2024 025 [facility], [address], [address], [place], [address], 12:24:26 beta-HCG, quantitativ e, serum or plasma 2024 025 [facility] (Lab), [address], [place], [address], 09:51:56 Referral None recorded. Procedures None recorded. Surgeries None recorded. Imaging US, transvagina l 2024 025 [email or web address] [place], [address], [place], [address], 5 20:41:29 Medication Orders Mirena 21 mcg/24 hr (up to 8 years) 52 mg intrauterin e device 2024 025 [email or web address] [facility], [facility] [place], [address], 13:02:49 Patient TargetsNo targets recorded. Patient InstructionsNo instructions recorded. Reason for Referral None Reported. Results Created Date Observation Date Name Description Value Unit Range Abnormal Flag Note LastModifiedBy Organization Detail LastModifiedTime 01/22/2001/21/2025 BHCG, QUANT ITATI VE B-HCG <0.2 mIU/m L 0.0-4. 9 This assay was perfo rmed using [employer] ratio n reage nts and test kits. Value s obtai cyn with other assay metho ds or kits canno t be used inter nino eably . Refer ence Range s: Non-p regna nt, preme nopau vanessa women : 0.0-4 .9 mIU/m L Postm enopa usal women : 0.0-7 .0 mIU/m L Valeria l Pregn umm: Gesta tadeo l Age bHCG Conc. - mIU/m L 3 Weeks 5.8 - 71.7 4 Weeks 9.5 - 750 5 Weeks 217-7 138 6 Weeks 158 - 31,79 5 7 Weeks 3,697 - 162,5 63 8 Weeks 32,06 5 - 149,5 71 9 Weeks 63,80 3 - 151,4 10 10 Weeks 46,50 9 - 186,9 77 12 Weeks 27,83 2 - 210,6 12 14 Weeks 13,95 0 - 62,53 0 15 Weeks 12,03 9 - 70,97 1 16 Weeks 9,040 - 56,45 1 17 Weeks 8,175 - 55,86 8 18 Weeks 8,099 - 58,17 6 Not Available [facility] (Lab) [address], [place], [address], 01/22/2025 09:51:56 01/23/2001/22/2025 CT/GC AND TRICH OMONA S VAGIN TIA (RRNA ), URINE chlamydia trachomatis, PCR Negati ve negati ve Not Available [facility] (Lab) [address], [place], [address], 01/23/2025 13:29:19 01/23/20 25 01/22/2025 CT/GC AND TRICH OMONA S VAGIN TIA (RRNA ), URINE neisseria gonorrhoeae, PCR Negati ve negati ve Not Available [facility] (Lab) [address], [place], [address], 01/23/2025 13:29:19 01/23/20 25 01/22/2025 CT/GC AND TRICH OMONA S VAGIN TIA (RRNA ), URINE trichomonas vaginalis ribosomal RNA (rrna) Negati ve negati ve Not Available [facility] (Lab) [address], [place], [address], 01/23/2025 13:29:19 01/23/20 25 01/22/2025 pregn umm test, urine HCG negati ve Not Available [place] [address], [place], [address], 01/22/2025 12:24:20 03/14/20 25 03/14/2025 US, trans vagin al No observ ation record ed. [email or web address] [place] [address], [place], [address], 03/14/2025 16:15:50 03/14/20 25 03/14/2025 US, trans vagin al No observ ation record ed. [email or web address] [address], [place], [address], 03/17/2025 22:39:34 Result Notes None recorded. Problems Name Problem SNOMED Code Status Onset Date Resolution Date Notes Provider Name and Address Organization Details Recorded Time Advanced maternal age 234613998 Completed Edilia Valerio [facility], [facility] 15:28:14 [id number] Completed 202311/27/2024 Lynda Louise null, [facility] 19:51:47 Problem Notes None recorded. Procedures Surgical History Date Name Laterality Status Provider Name and Address Organization Details Recorded Time 01/23/20 25 IUD Insertion completed CRISTIANE Estes [address], [place], [address], [facility] 01/22/2025 12:23:31 01/08/20 25 IUD Insertion completed Luanne Bales [facility] 01/07/2025 12:30:41 09/05/19 23 Date of Last Pap Smear completed [facility] 04/13/2024 15:19:59 09/05/19 21 discectomy of spine completed [facility] 04/13/2024 15:25:20 Imaging Results None recorded. Procedure Notes None recorded. Medical Equipment None Reported. Allergies No known drug allergies Medications Name Sig Start Date Stop Date Status Note LastModified by Organization Details LastModified Time Mirena 21 mcg/24 hr (up to 8 years) 52 mg intrauterin e device Take 1 device by intrauter ine route. 2024 active Not Available Not Available Not Avai lable ondansetron 8 mg disintegrat ing tablet Place 1 tablet twice a day by transling ual route. 07/27 completed Not Available Not Available Not Available active Not Available Not Avai lable Not Available Vitals Date Recorded Body height Body mass index (BMI) Body weight Systolic And Diastolic Provider Name and Address Organization Details Last Updated DateTime 12/28/2024 167.64 cm 22.9 kg/m2 55414.12 g 114/77 mm[Hg] Arina Peraza [facility] 12/28/2024 09:34:37 Date Recorded Body height Body mass index (BMI) Body weight Systolic And Diastolic Provider Name and Address Organization Details Last Updated DateTime 01/07/2025 167.64 cm 24.6 kg/m2 94548.48 g 112/70 mm[Hg] [facility] 01/07/2025 12:46:33 Date Recorded Body height Body mass index (BMI) Body weight Systolic And Diastolic Provider Name and Address Organization Details Last Updated DateTime 01/22/2025 167.64 cm 24.3 kg/m2 52583.01 g 125/81 mm[Hg] [facility] 01/22/2025 12:04:18 Date Recorded Body height Body mass index (BMI) Body weight Systolic And Diastolic Provider Name and Address Organization Details Last Updated DateTime 03/11/2025 167.64 cm 23 kg/m2 71530.84 g 112/70 mm[Hg] [facility] 03/11/2025 09:41:15 Social History Question Answer Notes LastModified by Organizat ion Details LastModified Time Tobacco Smoking Status Never Smoker Arina pozo, [facility] 04/13/2024 15:23:16 Are You Blind Or Do You Have [...] Or The Highest Degree You Have Received? [id number] Information not available 04/13/2024 Are There Any [...] Sunscreen Routinely? No Information not available 04/13/2024 Do You Have Difficulty Walking Or Climbing Stairs? No Information not available 04/13/2024 Sex: Female Functional Status Question Answer Note LastModified by Organizat ion Details LastModified Time Do you use any illicit or recreational drugs? No Information not available 04/13/2024 What is your level of alcohol consumption? None Information not available 04/13/2024 Are you currently employed? No Information not available 04/13/2024 Are you able to walk? YESWOREST Information not available 04/13/2024 Are you able to care for yourself? Yes Information n ot available 04/13/2024 Do you have difficulty dressing or bathing? No Information not available 04/13/2024 What is your exercise level? Heavy Information not available 04/13/2024 Mental Status Question Answer Note LastModified by Organization D etails LastModified Time Do you feel stressed (tense, restless, nervous, or anxious, or unable to sleep at night)? [id number] Information not available 04/13/2024 Family History Relationship Description Onset Age of [...] SNOMED-CT Code Diagnosis ICD10 Code Diagnosis Note [id number] Valdo Turk MD [place] [address] [address] 04/13/2024 14:21:28 04/13/2024 15:11:25 [id number] Valdo Turk MD [place] [address],[place] [address] 04/13/2024 14:31:30 04/13/2024 15:53:10 Amenorrhea 76302297 N91.2 this patient is a 38 year-old [...] begin routine care at her next visit. [id number] MD Indy Romano [address] [address] 04/30/2024 14:45:36 04/30/2024 15:47:56 screening 561828995 Z36.82 Z3A.12 [id number] MD Indy Romano [address] [address] 04/30/2024 14:47:35 04/30/2024 16:36:05 Routine care 912359023 Z34.91 Nausea and vomiting 1693 2000 R11.2 [id number] MD Indy Romano [address] [address] 05/28/2024 09:23:31 05/28/2024 10:08:33 Routine care 610380261 Z34.91 [id number] MD Indy SOLORIO [address] [address] 06/29/2024 11:24:59 06/29/2024 14:10:45 Advanced maternal age 961402416 O09.522 Gestation period, 20 weeks 23203178 Z3A.20 - continue PNV [id number] MD Indy Romano [address] [address] 06/29/2024 11:27:19 07/02/2024 10:13:58 screening for malformation 419075596 Z36.3 Z3A.20 [id number] MD Indy SOLORIO [address] [address] 07/27/2024 09:18:03 07/27/2024 10:01:48 Routine care 215865228 Z34.82 [id number] MD Indy Romano [address] [address] 08/22/2024 09:27:42 08/22/2024 10:12:48 Advanced maternal age 376270191 O09.513 Z36.2 Z3A.28 [id number] SYMONE GOODEN MD [place] [address] [address] 08/22/2024 09:28:00 08/22/2024 10:54:39 Breech presentation 6666262 O32.1XX9 Advanced m aternal age 253093076 O09.522 RhD negative 648366991 Z 01.83 Gestation period, 28 weeks 36945842 Z3A.28 [id number] MD Indy Romano [address] [address] 09/04/2024 11:52:25 09/04/2024 12:34:10 screening 153154631 Z36.2 Z3A.30 [id number] MD Indy Romano [address] [address] 09/04/2024 11:52:43 09/05/2024 02:47:37 Routine care 495592337 Z34.91 [id number] Valdo Turk MD [place] [address] [address] 09/17/2024 10:27:40 09/17/2024 10:53:21 Routine care 936938516 Z34.91 [id number] MD Indy Romano [address] [address] 10/04/2024 10:18:46 10/04/2024 11:14:09 Uterine size for dates discrepancy 154608163 O26.843 Z3A.34 [id number] MD Indy Romano [address],[place] [address] 10/04/2024 10:19:05 10/04/2024 12:11:51 Routine care 937439162 Z34.91 [id number] MD Indy Romano [address] [address] 10/16/2024 10:35:05 10/16/2024 12:18:54 Routine care 082213316 Z34.91 [id number] Valdo Turk MD [place] [address] [address] 10/23/2024 10:28:16 10/23/2024 11:15:59 Routine care 609916027 Z34.91 [id number] MD Indy Romano [address] [address] 10/29/2024 10:37:43 10/29/2024 12:05:26 Routine care 010401098 Z34.91 [id number] MD Indy Romano [address] [address] 11/09/2024 11:17:44 11/09/2024 12:30:22 Routine care 466556872 Z34.91 [id number] MD Indy Romano [address] [address] 11/13/2024 11:52:46 11/13/2024 14:47:36 Post-term 30586455 O48.0 [id number] MD Indy Romano [address] [address] 11/13/2024 11:53:47 11/13/2024 13:16:20 [id number] MD Indy Romano [address],[place] [address] 11/16/2024 08:58:44 11/19/2024 08:41:43 [id number] MD Indy Romano [address] [address] 12/28/2024 09:23:28 12/28/2024 10:02:48 care status 691590493 Z39.2 39-year-ol d female presents for care. Her baby is doing well. The baby is breastfeed ing. Patient continues to bleed a little bit. She has not had intercours e. We agreed to Mirena IUD after some counseling on contracept ion. Well-woman exam in 3 months. She will return next week for Mirena IUD. [id number] CRISTIANE Estes [place] [address],[place] [address] 01/07/2025 12:19:34 01/07/2025 13:57:40 Left before being seen 9636653771 105 Z53.21 No charge visit pt here for Mirena IUDhas been having unprotecte d IC (last 3 days ago)will abstain from unprotecte d IC x 2 weeks and RTC for Mirena IUD insertionw ill have bhcg done day prior Contracept ion care management 466591950 Z30.9 [id number] CRISTIANE Estes [place] [address],[place] [address] 01/22/2025 11:46:04 01/22/2025 14:44:36 Insertion of hormone releasing intrauterine contraceptive device 025492757 Z30.430 R/b/a reviewedUP T (-)Mirena IUD inserted (see procedure note)preca utions discussedR TC for string check in 4-6 wks Venereal d isease screening 693012521 Z11.3 [id number] CRISTIANE Estes [place] [address],[place] [address] 03/11/2025 09:08:40 03/11/2025 10:17:10 Intrauterine contraceptive device in situ 286378197 Z30.431 IUD strings not visualized on examorder placed for pelvic u/s for IUD checkquest ions answered, precaution s discussed Time spent in visit is a total of 18 mins with at least 50% of visit consisting of counseling and review of plan of care. [id number] Valdo Turk MD [place] [address],[place] [address] 03/14/2025 11:27:15 03/14/2025 12:19:34 Disorder of intrauterine contraceptive device 416152394 T83.39XA Health Concerns Section Related Observation LastModified by Organization Detai ls LastModified Time None Recorded Concern Status LastModified by Organization Details LastModified Time None Recorded Advance Directives Directive None Recorded Payers Insurance Date Sequence Insurance Name Policy Number Policy Bee Covered Member ID Bee Member ID Guarantor Name 03/14/2025 1 [place] [id number] Ruben Hartman [id number] [facility] 03/11/2025 2 [facility] [place] [facility] [id number] [facility] 03/11/2025 2 [facility] (MEDICAID HMO) [facility] [id number] [facility] Notes Date Note Type Note Provider [...] IUD. Valdo Turk MD [address], [place], [address], [facility] 12/28/2024 10:00:28 01/07/2025 text/html Patient presents for IUD insertion. CRISTIANE Estes [address], [place], [address], [facility] 01/07/2025 13:49:49 01/22/2025 text/html Patient presents for IUD insertion.has been abstaining from unprotected IC x 2 weeksbhcg done 01/21/2025 negative CRISTIANE Estes [address], [place], [address], [facility] 01/22/2025 13:42:14 03/11/2025 text/html 39yoPresents for IUD checks/p Mirena IUD insertion 01/22/2025no issues since insertion CRISTIANE Estes [address], [place], [address], [facility] 03/11/2025 10:09:47 OBGyn Episode Ob Episode Information Episode Created Date Number of Fetuses Patient Bloodtype Patient rh Status Prepregnancy Weight lbs Domestic Partner Domestic Partner Phone Father Name Mechanism Inspector Status 04/13/20 24 1 CLOSED Fetus Data First Name Last Name Admitted to NICU Weight (g) Sex Living Outcome Pediatric Complications Fetus ID Race Codes Race Delivery Type 2749.67 4704 F Full Term [id number] Vaginal Delivery Julito Calculation Initial Julito Date [...] Domestic Partner Domestic Partner Phone Father Name Mechanism Inspector Status 04/30/20 24 1 A Negative 135 Abner CLOSED Fetus Data First Name Last Name Admitted to NICU Weight (g) Sex Living Outcome Pediatric Complications Fetus ID Race Codes Race Delivery Type 3203.49 37 F true Full Term [address]8312 Vaginal Delivery Problems Problem Notes + GBS Problem Name Start Date End Date Resolution Snomed Code Not e Advanced maternal age [id number] Julito Calculation Initial Julito Date Initial Exam [...] Gestation 0 [email or web address] 04/30/2024 11/11/19 25 0 Pre-tom Flowsheet Flowsheet Date 04/30/2024 Tavares Score Blood Edema Fundus Height Fundus Units Glucose Ketones Leukocytes Nitrite Labor Signs Protein Cervic Dilation Cervic Effacement Cervic Station 12 cm Type Weight in lbs Pre/Post Dialysis Refused Weight 137.286425962904 BP Diastolic BP Location Tested BP Systolic [...] Type Weight in lbs Pre/Post Dialysis Refused 144.541393988586 BP Diastolic BP Location Tested BP Systolic [...] Type Weight in lbs Pre/Post Dialysis Refused 148.462388502378 BP Diastolic BP Location Tested BP Systolic [...] Weight in lbs Pre/Post Dialysis Refused Weight 159.035672991920 BP Diastolic BP Location Tested BP Systolic BP Type 77 L arm 136 sitting Fetus Heart Rate Present A 150 Fetus Movement A Yes Comments Doing well, no issues. Good movement. No cramping or bleeding. Son had pinworms, patient does not have symptoms. Discussed meds should be safe if needed in . Discussed repeat anatomy US and GCT/labs at [facility] for next visit. RTC 4 weeks. Flowsheet [...] Type Weight in lbs Pre/Post Dialysis Refused 166.507261995918 BP Diastolic BP Location Tested BP Systolic BP Type 66 L arm 114 sitting Fetus Heart Rate Present A 134 Fetus Movement A Yes Comments Doing well, good movem ent. No cramping or bleeding. Completed GCT and labs at [facility] yesterday, all within normal limits. Will call to schedule Rhogam injection. EFW 21%, nayn breech. plantar feet view normal, DA not [...] Type Weight in lbs Pre/Post Dialysis Refused 172.043427084680 BP Diastolic BP Location Tested BP Systolic [...] Weight in lbs Pre/Post Dialysis Refused Weight 176.048441923563 BP Diastolic BP Location Tested BP Systolic [...] Type Weight in lbs Pre/Post Dialysis Refused 183.782508805128 BP Diastolic BP Location Tested BP Systolic [...] Weight in lbs Pre/Post Dialysis Refused Weight 184.380238479815 BP Diastolic BP Location Tested BP Systolic [...] Weight in lbs Pre/Post Dialysis Refused Weight 187.626096318315 BP Diastolic BP Location Tested BP Systolic [...] Type Weight in lbs Pre/Post Dialysis Refused 189.628347597174 BP Diastolic BP Location Tested BP Systolic [...] Weight in lbs Pre/Post Dialysis Refused Weight 193.868999424378 BP Diastolic BP Location Tested BP Systolic [...] Weight in lbs Pre/Post Dialysis Refused Weight 190.660591269211 BP Diastolic BP Location Tested BP Systolic BP Type 70 L arm 108 sitting Fetus Heart Rate Present Fetus Movement Comments Flowsheet Date 11/13/2024 Tavares Score Blood Edema Fundus Height Fundus Units Glucose Ketones Leukocytes Nitrite Labor Signs Protein Cervic Dilation Cervic Effacement Cervic Station none Type Weight in lbs Pre/Post Dialysis Refused Weight 190.160069915623 BP Diastolic BP Location Tested BP Systolic [...]
== END 2025-03-26 12:27 | disposition home or self-care (01) ==
LOC: CHSIMG 12:29
PROVIDERS: PCP Family Medicine; Visit Provider Nurse Practitioner
DX: Z97.5 Presence of (intrauterine) contraceptive device (principal)
CPT/HCPCS: 72170

== ENCOUNTER 2025-04-08 00:27 | Day surgery (SDC) | payer BC, SELFPAY ==
[2025-04-04 12:46] VITALS: BMI 21.1
--- NOTE | 2025-04-04 12:47 | PC.NURSE ---
Report to the Outpatient Waiting Room, entrance under the green pavilion located off [facility], at time _1130_ on date _[id number]_. Planned Procedure Time: _130pm_.? Time changes happen often and if your time is changed the preop area will call you the afternoon before. - You and your visitor will be asked to self-screen and do not enter if you have any COVID symptoms. Please call surgeon if you need to reschedule. - A mask is optional within the hospital at this time. Patients may have clear liquids (water, carbonated beverages, clear teas, apple juice) until 3 hours prior to surgery with a maximum of 20 ounces. - No food from midnight until time of surgery and no smoking, or chewing tobacco (or any form of nicotine). No chewing gum, candy or mints. Take only the following medications with a SIP of water on the morning of surgery: ___Februaryl____ DO NOT STOP ANY OF YOUR OTHER PRESCRIPTION MEDICATIONS PRIOR TO SURGERY EXCEPT THE FOLLOWING Hold all vitamins and supplements for 3 days per anesthesiologist. Medications to discontinue per physician Date to take last dose Please no make-up, nail serbian, hairspray, perfume, deodorant, or body powder the day of surgery.? No jewelry (including any body piercings) or valuables the day of surgery, leave them at home.? Please take a shower or bath the night before, or the morning of, surgery with an antibacterial soap.? Wear comfortable, loose fitting clothing.? - Jewelry must be removed prior to entering the operating room.? Rings and piercings that are not removed may be cut off. - The hospital will not accept responsibility for valuables.? - Please leave all valuables, including medications, at home the day of surgery. If you are going home after surgery, a licensed new autos delivery driver must drive you home.? - NO public transportation without another adult if you receive anesthesia. - We recommend that an adult stay with you for 24 hours following discharge. - We also recommend that you do not drive, make important decision, drink alcoholic beverages, or take any drugs that were not prescribed by your health care provider for at least 24 hours after your discharge time. Follow any additional instructions given to you from your surgeon. Telephone instructions given to __Pamela___and asked if any additional questions and then verbalized understanding. Patient advised to call surgeon office or pre surgery nurse liaison [phone] if any additional questions.
[2025-04-08] VITALS (10 sets, daily range): BP systolic 87–110; BP diastolic 47–64; PULSE 45–78; RESP 13–24; TEMP 36.6–37; O2SAT 98–100
[2025-04-08] MEDS: LACTATED RINGERS 1,000 ML 30 ML IV CONT (12:00)
[2025-04-08] MEDS: KETOROLAC 15 MG/ML VIAL (*BKC) IV PUSH (12:35)
[2025-04-08 12:36] LABS: BEDSIDEPREGUCG Negative (Negative)
--- NOTE | 2025-04-08 13:24 | WPDHPUPDATE1 ---
History and Physical Update Update Date/Time: 04/08/25 13:24 History and Physical has been reviewed, including an updated exam of the patient. There are NO changes in the patient's condition. Risks, benefits, and alternatives have been discussed and questions answered. Patient agrees to proceed with procedure.
--- NOTE | 2025-04-08 13:37 | P.PNAN_ITS ---
Anes - Initial Pre Proc Eval Procedure: Operation Date: 04/08/25 13:30 Proposed Procedures p Laparoscopic Removal of Foreign Body from Peritoneal Cavity - Valdo Turk MD Date/Time: 04/08/25 13:37 Surgeon: Valdo Turk MD Pre Op Diagnosis: Displacement of Intrauterine Contraceptive Device Patient Data Age: 39 Gender: F Height: 1.75 m Weight: 61.3 kg Last Vital Signs Temp 37.0 C 04/08/25 12:32 Pulse 56 L 04/08/25 12:32 Resp 16 04/08/25 12:32 BP 110/64 04/08/25 12:32 Pulse Ox 98 04/08/25 12:32 O2 Del Method Room Air 04/08/25 12:32 Allergies Allergy/AdvReac Type Severity Reaction Status Date / Time nickel Allergy Rash Verified 04/08/25 12:30 Home Medications ?Medication ?Instructions ?Recorded ?Confirmed ?Type norethindrone 1 mg-ethinyl 1 tablet PO DAILY 04/04/25 04/04/25 History estradiol 20 mcg (21)-iron 75 mg (7) tablet (June09/24 (28)) Laboratory Tests 04/08/25 12:32 POC Urine HCG, Qual Negative (Negative) Patient hx anesthesia problems: none Family hx anesthesia problems: none Results Review: All pre-operative results and documents have been reviewed as part of the pre- operative evaluation. [facility] Past Medical History Medical History Overweight (BMI 25.0-29.9) and not yet delivered Seasonal allergies History of herniated intervertebral disc History of vaginal delivery Surgical History Surgical History History of lumbar discectomy Family History Family History Father Diabetes mellitus Mother Breast cancer Social History Social History Smoking status: Never smoker Second hand tobacco smoke exposure: No Alcohol intake: never Substance use: never Do You Feel Safe in your Home?: Yes Lack of Transportation: No Lack of Food: Never True Current Housing: I Have Housing Concerned About Future Housing: No Difficulty Paying Gas/Electric Bills: No Difficulty Paying for Meds: No Currently Unemployed: No Education: Master's Degree or Higher Difficulty w/ Childcare or Family Care: No Living arrangements: with family Additional occupation/education comments: Stay at home mom Gender identity (if verbalized by the patient): Female Sexual Orientation (if Verbalized by the Patient): Straight or Heterosexual Spiritual care concerns: No Anes - Eval Final PreProcedure Day of Procedure 04/08/25 13:37 Patient weight: normal Heart: regular rate and rhythm Lungs: clear to auscultation Airway: Mallampati scale class 1 Neurological: alert and oriented Last oral intake: >/= 8 hours ASA classification: II Emergent: no Anesthetic plan: proceed Anesthesia type and monitoring: general ETT and standard monitoring Results Review: All pre-operative results and documents have been reviewed as part of the pre-op erative evaluation. Informed Consent: The patient's anesthetic plan and its attendant risks and benefits were discussed with the patient/family/POA. Questions were solicited and answers provided to the satisfaction of the patient/family/POA.
--- NOTE | 2025-04-08 14:31 | W.PM.PROC2 ---
Procedure Note - Detailed Date of Procedure 04/08/25 Pre-op Diagnosis Displacement of Intrauterine Contraceptive Device Post-op Diagnosis Same Procedure Performed Laparoscopic removal of intra peritoneal foreign body Surgeon Valdo Turk MD Anesthesia General Indications Pelvic pain Findings Normal pelvic anatomy with IUD free in the pelvis. Description of Procedure The patient was taken to the operating room. She was prepped and draped in the dorsal lithotomy position after induction general anesthesia. A 5 mm incision was made with a scalpel on the abdominal skin in the left upper quadrant of the abdomen. A 5 mm trocar was inserted into the intra-abdominal cavity under direct visualization the scope. In the same fashion a 5 mm left lower quadrant trocar was inserted and a 5 mm infraumbilical trocar was inserted. IUD was grasped in the posterior cul-de-sac and removed the left lower quadrant trocar site The pneumoperitoneum was reduced. The trocars were removed. Skin was closed with subcuticular 4 micro. The patient's incisions were covered with Dermabond. She was taken recovery room in stable condition. Sponge lap and needle counts were correct x2. Complications No immediate complications Condition Stable Disposition Same day
[2025-04-08] MEDS: ONDANSETRON INJ 4 MG/2 ML VIAL IV PUSH (16:19)
== END 2025-04-08 16:39 | disposition home or self-care (01) ==
PROVIDERS: PCP Family Medicine; Visit Provider Obstetrics & Gynecology
PROC: (CPT 49320; principal; 2025-04-08 13:30)
DX: T83.32XA Displacement of intrauterine contraceptive device, initial encounter (principal); Y84.8 Other medical procedures as the cause of abnormal reaction of the patient, or of later complication, without mention of misadventure at the time of the procedure
CPT/HCPCS: 49329; A9270; J1885; J2003; J2250; J2405; J2704; J3010; J7030; J7120